=== PATIENT | male | born 1960 | race Caucasian/White ===

== ENCOUNTER 2024-06-26 07:27 | Emergency (ER) | payer BC ==
[2024-06-26 08:02] VITALS: RESP 18
--- NOTE | 2024-06-26 09:04 | XR ---
EXAMINATION TYPE: XR chest 2V DATE OF EXAM: 06/26/2024 8:58 AM COMPARISON: None. CLINICAL INDICATION: Male, 63 years old with history of cough, TECHNIQUE: XR chest 2V view(s) obtained. FINDINGS: The heart size is normal. The pulmonary vasculature is normal. Mild fullness of the right hilar region. Follow-up be performed.. IMPRESSION: 1. Mild right hilar prominence. Follow-up recommended. [facility], , 06/26/2024 9:01 AM
[2024-06-26] MEDS: methylPREDNISolone SOD SUCCI 125 MG/2 ML VIAL IM ONE (09:14)
[2024-06-26] MEDS: IPRATROPIUM-ALBUTEROL 3 ML NEB INHALATION STA (09:43)
--- NOTE | 2024-06-26 10:05 | ED ---
General Adult HPI - General Chief complaint: Upper Respiratory Infection Stated complaint: KAYLEN Time Seen by Provider: 06/26/24 08:40 Source: patient, RN notes reviewed, old records reviewed Mode of arrival: ambulatory Limitations: no limitations - History of Present Illness Initial comments: Patient is a 63-year-old male presents emergency department upper respiratory symptoms. He has been ongoing for approximately 4 days. Has a history of asthma. Endorses wheezing, productive cough, as well as some mild shortness of breath. Endorses some nasal congestion. Denies sore throat. Denies abdominal pain, nausea, vomiting, diarrhea. No other acute complaints at this time. Presents for further evaluation. Was given Decadron earlier this week however symptoms persist. [place] and wanted to be evaluated prior to his trip. - Related Data Previous Rx's Medication Instructions Recorded Azithromycin [Zithromax] 250 mg PO DAILY 4 Days #4 tab 06/26/24 predniSONE [Deltasone] 40 mg PO DAILY 5 Days #10 tab 06/26/24 Allergies Allergy/AdvReac Type Severity Reaction Status Date / Time No Known Allergies Allergy Verified 06/26/24 07:50 Review of Systems ROS Statement: Those systems with pertinent positive or pertinent negative responses have been documented in the HPI. Review of Systems: CONST: Denies fever EYES: Denies blurry vision ENT: Endorses nasal congestion C/V: Denies Chest pain RESP: Endorses cough GI: Denies abdominal pain : Denies dysuria SKIN: Denies rash. MSK: Denies joint pain. NEURO: Denies headache ROS Other: All systems not noted in ROS Statement are negative. Past Medical History Smoking Status: Never smoker Past Alcohol Use History: Rare Past Drug Use History: None Reported General Exam - General Exam Comments Initial Comments: General: Appears in no acute distress. HEAD: Normal with no signs of head trauma. EYES: EOMI. ENT: Hearing grossly intact. RESPIRATORY: Bilateral end expiratory wheezing, mild hypoxia. No significant increased work of breathing. C/V: Regular rate and rhythm. ABD: Abdomen is nondistended. EXT: No obvious deformity. SKIN: No rashes or lesions observed on exposed skin. NEURO: Alert and oriented. Limitations: no limitations Course Vital Signs 06/26/24 06/26/24 06/26/24 07:47 07:56 09:44 Temperature 99.5 F Pulse Rate 79 77 Respiratory 20 18 Rate Blood Pressure 154/88 O2 Sat by Pulse 96 Oximetry 06/26/24 06/26/24 09:52 10:18 Temperature 98.1 F Pulse Rate 80 81 Respiratory 18 Rate Blood Pressure 141/89 O2 Sat by Pulse 97 Oximetry Medical Decision Making - Medical Decision Making Was pt. sent in by a medical professional or institution ([facility], INVENTORY CONTROL/SHIPPING RECEIVING, urgent care, hospital, or fci...) When possible be specific @ -No Did you speak to anyone other than the patient for history (EMS, parent, family, police, friend...)? What history was obtained from this source @ -No Did you review nursing and triage notes (agree or disagree)? Why? @ -I reviewed and agree with nursing and triage notes Were old charts reviewed (outside hosp., previous admission, EMS record, old EKG, old radiological studies, urgent care reports/EKG's, fci records)? Report findings @ -No old charts were reviewed Differential Diagnosis (chest pain, altered mental status, abdominal pain women, abdominal pain men, vaginal bleeding, weakness, fever, dyspnea, syncope, headache, dizziness, GI bleed, back pain, seizure, CVA, palpatations, mental health, musculoskeletal)? @ -COVID, flu, RSV. This list is not all inclusive. EKG interpreted by me (3pts min.). @ -None done X-rays interpreted by me (1pt min.). @ -Chest x-ray shows right hilar fullness of unknown etiology. CT interpreted by me (1pt min.). @ -None done U/S interpreted by me (1pt. min.). @ -None done What testing was considered but not performed or refused? (CT, X-rays, U/S, labs)? Why? @ -None What meds were considered but not given or refused? Why? @ -None Did you discuss the management of the patient with other professionals (professionals i.e. [facility], INVENTORY CONTROL/SHIPPING RECEIVING, lab, RT, psych nurse, social science instructor, farm equipment mechanic, teacher, chief clinical officer, block and case maker)? Give summary @ -No Was smoking cessation discussed for >3mins.? @ -No Was critical care preformed (if so, how long)? @ -No Were there social determinants of health that impacted care today? How? (Homelessness, low income, unemployed, alcoholism, drug addiction, transportation, low edu. Level, literacy, decrease access to med. care, nursing home, rehab)? @ -No Was there de-escalation of care discussed even if they declined (Discuss DNR or withdrawal of care, Hospice)? DNR status @ -No What co-morbidities impacted this encounter? (DM, HTN, Smoking, COPD, CAD, Cancer, CVA, ARF, Chemo, Hep., AIDS, mental health diagnosis, sleep apnea, morbid obesity)? @ -None Was patient admitted / discharged? Hospital course, mention meds given and route, prescriptions, significant lab abnormalities, going to OR and other pertinent info. @ -Presents with URI symptoms in the setting of asthma. Patient given steroids, breathing treatment here in the department. Will obtain viral swabs, chest x-ray. Patient in agreement this plan. Vital signs within acceptable l imits. Chest x-ray shows right hilar fullness as well as having negative viral swabs and strep swab. I discussed results with the patient including the chest x-ray findings of the right hilar fullness. Recommended repeat imaging following improvement of his URI symptoms. Patient's wheezing has improved as well. Patient diagnosed with asthma and tracheobronchitis. He will be given a prescription for steroids as well as a Z-Juan. He was in agreement this plan. Does not require albuterol refill. Strict return precautions discussed. Vital signs remained within acceptable limits. I will provide the patient with a prescription for prednisone, as azithromycin. I instructed the patient to follow up with their PCP in the next 1-3 days.. I explained that the patient should return to the emergency department if they experience any worsening symptoms. Strict return precautions were discussed with the patient. The patient expressed understanding of these instructions. I answered all questions that the patient had. The patient was discharged home in good condition with their prescriptions and follow up information. Undiagnosed new problem with uncertain prognosis? @ -No Drug Therapy requiring intensive monitoring for toxicity (Heparin, Nitro, Insulin, Cardizem)? @ -No Were any procedures done? @ -No Diagnosis/symptom? @ -Asthma, tracheobronchitis Acute, or Chronic, or Acute on Chronic? @ -Acute Uncomplicated (without systemic symptoms) or Complicated (systemic symptoms)? @ -Uncomplicated Side effects of treatment? @ -No Exacerbation, Progression, or Severe Exacerbation? @ -No Poses a threat to life or bodily function? How? (Chest pain, [place], NC, pneumonia, PE, COPD, DKA, ARF, appy, cholecystitis, CVA, Diverticulitis, Homicidal, Suicidal, threat to staff... and all critical care pts) @ -Unlikely - Lab Data Lab Results 06/26/24 06/26/24 Range/Units 08:46 08:46 Influenza Type A (PCR) Not Detected (Not Detectd) Influenza Type B (PCR) Not Detected (Not Detectd) RSV (PCR) Not Detected (Not Detectd) SARS-CoV-2 (PCR) Not Detected (Not Detectd) Group A Strep (PCR) NOT DETECTED (Not Detectd) Disposition Clinical Impression: Tracheobronchitis, Asthma Disposition: HOME SELF-CARE Condition: Good Instructions (If sedation given, give patient instructions): Asthma (DC), Acute Bronchitis (ED) Prescriptions: predniSONE [Deltasone] 40 mg PO DAILY 5 Days #10 tab Azithromycin [Zithromax] 250 mg PO DAILY 4 Days #4 tab Is patient prescribed a controlled substance at d/c from ED?: No Referrals: Nonstaff,Physician [Primary Care Provider] - 1-2 days Forms: Area PCPs Time of Disposition: 10:00
[2024-06-26] MEDS: AZITHROMYCIN 500 MG TAB PO STA (10:17)
[2024-06-26 10:21] VITALS: BP 141/89; PULSE 81; TEMP 98.1
== END 2024-06-26 10:23 | disposition home or self-care (01) ==
LOC: EC 07:27
DX: J20.9 Acute bronchitis, unspecified (principal); J45.909 Unspecified asthma, uncomplicated
CPT/HCPCS: 94640; 87651; 87636; 71046; 99285; 96372; J2919